=== PATIENT | female | born 1995 | race Caucasian/White ===

== ENCOUNTER 2017-09-28 22:42 | Emergency (ER) | payer OTHER ==
[~2017-09-28] VITALS: Ht 157.5 cm; Wt 79.4 kg
[~2017-09-28 22:42] MED LIST: CEFDINIR300 MG PO; KEFLEX500 MG PO; NAPROSYN375 MG PO; NOHOMEMEDS; TYLENOL WITH C1 EACH PO
[2017-09-28 23:17] LABS: HEMATOCRIT 38.3 % (36.0-46.0); MCH 30.2 PG (29.0-34.0); MCHC 33.9 G/DL (30.0-36.0); MCV 89.1 FL (83-99); PLATELET COUNT 265 K/uL (156-360); RBC DIS.WIDTH-CV 12.1 % (11.8-14.6); RBC DIS.WIDTH-SD 39.2 % (39-53); WHITE BLOOD COUNT 7.7 K/uL (4.1-10.2)
[2017-09-28 23:31] LABS: ALBUMIN 4.3 g/dL (3.2-4.8); CHLORIDE 107 mEq/L (99-109); POTASSIUM 3.8 mEq/L (3.7-5.4); SODIUM 140 mEq/L (136-147)
[2017-09-28 23:33] LABS: GLUCOSE 108 mg/dL (70-99); TOTAL PROTEIN 7.6 g/dL (6.4-8.3)
[2017-09-28 23:35] LABS: TOTAL BILIRUBIN 0.6 mg/dL (0.0-1.0)
[2017-09-28 23:37] LABS: ALKALINE PHOSPHATASE 79 IU/L (3-129); CREATININE 0.8 mg/dL (0.6-1.3); GFR ESTIMATE (CALCULATED) > 59 mL/min/
[2017-09-28 23:38] LABS: UREA NITROGEN (BUN) 10 mg/dL (9-23)
[2017-09-28 23:39] LABS: AST (GOT) 19 IU/L (2-34)
[2017-09-28 23:40] LABS: ALT (GPT) 29 IU/L (3-49)
[2017-09-28 23:51] LABS: QUANTITATIVE HCG < 4.0 MIU/ML
[2017-09-29 01:22] LABS: LIPASE 21 U/L (1.0-51.0)
[2017-09-29 01:36] LABS: APPEARANCE SL.HAZY ((CLEAR)); BILIRUBIN NEGATIVE; BLOOD MODERATE; COLOR YELLOW ((YELLOW)); GLUCOSE (STRIP) NEGATIVE; KETONES NEGATIVE; LEUKOCYTES SMALL; NITRITE NEGATIVE; PROTEIN (STRIP) 30; SPECIFIC GRAVITY 1.026 (1.000-1.030)
[2017-09-29 01:45] LABS: BACTERIA RARE /HPF; EPITHELIAL CELLS 1+ /HPF; MUCUS NONE SEEN /LPF; RED BLOOD CELLS 0-5 /HPF (0-5); UCUL ADDED? YES
[2017-09-29] MEDS ORDERED: MACROBID100 MG PO (02:30)
[2017-09-29] MEDS ORDERED: ZOFRAN ODT4 MG PO (02:30)
[2017-09-29 03:00] VITALS: BP 128/88
== END 2017-09-29 03:00 | disposition home or self-care (01) ==
LOC: EME 22:42
DX: N30.00 Acute cystitis without hematuria (principal)
CPT/HCPCS: 74177; 80053; 81003; 83690; 84702; 85027; 87086; 99281; 99284; J2405; J3010; J7030